=== PATIENT | male | born 1985 | race Caucasian/White ===

== ENCOUNTER → 2020-12-30 | Outpatient (CLI) | payer BC, OTHER | LOC: KOH-I 08:38 | DX: M25.372 Other instability, left ankle (principal); M25.572 Pain in left ankle and joints of left foot; M79.89 Other specified soft tissue disorders | CPT/HCPCS: 73610 ==

== ENCOUNTER → 2021-01-09 | Outpatient (CLI) | payer BC | LOC: KOH-I 09:30 | DX: M25.572 Pain in left ankle and joints of left foot (principal); G89.29 Other chronic pain; S83.502A Sprain of unspecified cruciate ligament of left knee, initial encounter; S93.402A Sprain of unspecified ligament of left ankle, initial encounter; M93.272 Osteochondritis dissecans, left ankle and joints of left foot | CPT/HCPCS: 73721 ==